=== PATIENT | female | born 2000 | race Hispanic/Latino ===

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

== ENCOUNTER → 2024-12-25 | Day surgery (SDC) | payer OTHER ==
[2024-12-19 09:27] LABS: BASOPHILS % 0.3 % (0.0-1.0); EOSINOPHILS # (AUTO) 0.1 (0.0-0.4); EOSINOPHILS % 1.6 % (0.0-6.0); HEMOGLOBIN 14.2 g/dL (12.0-16.0); LYMPHOCYTES # (AUTO) 2.6 (1.0-3.2); LYMPHOCYTES % 36.3 % (18.0-39.1); MEAN CORPUSCULAR HEMOGLOBIN 31.2 pg (28-32); MEAN CORPUSCULAR HGB CONC 34.6 g/dL (31-35); MEAN CORPUSCULAR VOLUME 90.1 fL (81-99); MONOCYTES # (AUTO) 0.5 (0.2-0.8); MONOCYTES % 6.5 % (4.4-11.3); NEUTROPHILS # (AUTO) 3.9 (2.1-6.9); PLATELET COUNT 183 x10e3/uL (140-360); RED BLOOD COUNT 4.55 x10e6/uL (3.6-5.1); RED CELL DISTRIBUTION WIDTH 11.7 % (11.7-14.4); WHITE BLOOD COUNT 7.08 x10e3/uL (4.8-10.8)
[~2024-12-25] MED LIST: ACETAMINOPHEN500 MG PO; CEFAZOLIN SODIUM 2 GM ONE; CEFDINIR300 MG PO; DEXAMETHASONE SOD PHOS INJ 4 MG/ML SDV ONE; FENTANYL CITRATE/PF 100MCG/2 ML INJ ONE; LIDOCAINE HCL 2% LOCAL INJ 5 ML SDV VIAL INJ ONE; MIDAZOLAM HCL 2 MG/2 ML VIAL ONE; ONDANSETRON HCL INJ 2MG/ML 2ML 2 MG/ML VIAL ONE; PROPOFOL IV EMULSION 10 MG/ML 20 ML VIAL ONE; SEVOFLURANE INHAL SOLN 250 ML PEN BTL ONE; ULTRAM 50MG50 MG PO; VENTOLIN HFA18 GM INH
[2024-12-25] MEDS: LACTATED RINGER'S 1,000 ML ONE (07:43)
[2024-12-25] MEDS: TRAMADOL HCL 50 MG TAB ONE (10:49)
[2024-12-25 11:10] VITALS: BP 125/86; PULSE 72; RESP 12; O2SAT 100
== END | disposition home or self-care (01) ==
LOC: OR 12-24 07:21
PROVIDERS: ATTEND Surgery
DX: M79.89 Other specified soft tissue disorders (principal); J45.909 Unspecified asthma, uncomplicated; F31.9 Bipolar disorder, unspecified; E66.3 Overweight; Z01.812 Encounter for preprocedural laboratory examination; Z79.899 Other long term (current) drug therapy
CPT/HCPCS: 21933; 36415; 81025; 84702; 85025; 88304; J1100; J2003; J2250; J2405; J2704; J3010; J7121